=== PATIENT | male | born 1970 | race American Indian/Alaskan Native ===

== ENCOUNTER 2016-10-24 19:56 | Emergency (ER) | payer MEDICARE ==
[2016-10-24 20:36] VITALS: BP 170/103
--- NOTE | 2016-10-24 22:03 | XRay Report ---
FINAL REPORT EXAM: XR FINGER(S) 2+V LT HISTORY: Slammed left index finger in door TECHNIQUE: AP view of the left hand and two views of the left index finger. PRIORS: None. FINDINGS: The osseous mineralization and alignment are normal. The joint spaces are normal. There is no evidence of fracture or dislocation. No radiopaque foreign body is identified. There is soft tissue swelling of the 2nd finger. IMPRESSION: Index finger soft tissue swelling. No evidence of fracture.
== END 2016-10-24 21:00 | disposition left against medical advice (07) ==
LOC: ED 19:56
DX: Z53.21 Procedure and treatment not carried out due to patient leaving prior to being seen by health care provider (principal)

== ENCOUNTER 2017-08-16 12:10 | Emergency (ER) | payer MEDICARE ==
[2017-08-16 12:18] VITALS: BP 142/84
--- NOTE | 2017-08-16 14:24 | Emergency Department Report ---
Upper Extremity - HPI Chief Complaint: Pain General Stated Complaint: RIGHT SHOULDER PAIN Time Seen by Provider: 08/16/17 14:15 Upper Extremity: Right Shoulder Occurred When: >5 Days Mechanism: Hyperflexion (there is) Symptoms: Yes Pain with Movement, No Deformity, No Limited Range of Movement, No Numbness, No Weakness, No Swelling, No Bruising/Ecchymosis, No Laceration or Abrasion ED Review of Systems ROS: Stated complaint: RIGHT SHOULDER PAIN Other details as noted in HPI Constitutional: denies: chills, fever Eyes: denies: eye pain, eye discharge, vision change ENT: denies: ear pain, throat pain Respiratory: denies: cough, shortness of breath, wheezing Cardiovascular: denies: chest pain, palpitations Endocrine: no symptoms reported Gastrointestinal: denies: abdominal pain, nausea, diarrhea Genitourinary: denies: urgency, dysuria Musculoskeletal: myalgia (right lateral shoulder pain radiatind for right deltoid to right forearm ) Skin: denies: rash, lesions Neurological: denies: headache, weakness, paresthesias Psychiatric: denies: anxiety, depression Hematological/Lymphatic: denies: easy bleeding, easy bruising ED Past Medical Hx - Past Medical History Hx Hypertension: Yes Hx Renal Disease: Yes (peritoneal dialysis) - Surgical History Additional Surgical History: umbilical hernia repair, vascular surgery x 4, spleenectomy - Social History Smoking Status: Never Smoker - Medications Home Medications: Home Medications Medication Instructions Recorded Confirmed Last Taken Type Cinacalcet HCl [Sensipar] 60 mg PO DAILY 06/02/13 06/02/13 06/01/13 10:00 History Losartan [Cozaar] 50 mg PO QDAY 06/02/13 06/02/13 06/01/13 10:00 History Metoprolol [Lopressor TAB] 100 mg PO BID 06/02/13 06/02/13 06/01/13 10:00 History Minoxidil [Loniten] 2.5 mg PO QDAY 06/02/13 06/02/13 06/01/13 10:00 History NIFEdipine*For Tocolysis only* 10 mg PO BID 06/02/13 06/02/13 06/01/13 10:00 History [PROCARDIA] Naproxen [Naprosyn] 500 mg PO BID #30 tablet 08/16/13 Unknown Rx traMADol [Ultram 50 MG tab] 50 mg PO Q6HR PRN #20 tablet 08/16/13 Unknown Rx Amoxicillin [Trimox CAP] 500 mg PO Q8H #21 capsule 11/28/13 Unknown Rx HYDROcodone/APAP 5-325 [[place] 1 each PO Q6HR PRN #12 tablet 11/28/13 Unknown Rx 5-325 mg TAB] Ibuprofen [Motrin 800 MG tab] 800 mg PO Q8H #45 tablet 11/28/13 Unknown Rx Erythromycin [Erythromycin Ophth 0 gm OU Q6HR #1 tube 07/22/15 Unknown Rx Oint] Cyclobenzaprine [Flexeril] 10 mg PO BID PRN #20 tablet 08/16/17 Unknown Rx Menthol/Camphor [[place] 1 applicatio TP TID PRN #1 tub 08/16/17 Unknown Rx Ointment] Naproxen 500 mg PO BID #30 tablet 08/16/17 Unknown Rx Upper Extremity Exam - Exam General: Vital signs noted. No distress. Alert and acting appropriately. Head and Torso: No HEENT Abnormality, No Neck Tenderness, No Chest/Lungs Abnormality, No Abdominal Tenderness, No Back Tenderness Shoulder Exam: Yes Shoulder Tenderness, Yes Normal Range of Motion in Shoulder, Yes AC Joint Tenderness (mild ), No Clavicle Tenderness, No Shoulder Deformity Arm Exam: No Arm/Humerus Tenderness, No Arm Deformity Elbow: No Elbow Tenderness, No Normal Range of Motion in Elbow, No Elbow Deformity Forearm: No Forearm Tenderness, No Forearm Deformity, No Pain with Pronation, No Pain with Supination Wrist: No Wrist Tenderness, No Normal ROM in Wrist, No Wrist Deformity, No Snuffbox Tenderness, No Pain with Axial Thumb Compression Hand: Yes Normal ROM in Digit(s), No Hand Tenderness, No Hand Deformity, No Digit Tenderness, No Digit(s) Deformity, No Tendon Dysfunction CMS Exam: Yes Normal Distal Pulses, Yes Normal Capillary Refill, Yes Normal Distal Sensation, No Broken Skin ED Course Vital Signs 08/16/17 12:16 Temperature 98.4 F Pulse Rate 74 Respiratory 16 Rate Blood Pressure 142/84 O2 Sat by Pulse 100 Oximetry ED Medical Decision Making - Medical Decision Making There is no swelling no ecchymosis no edema no deformity 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 ED Disposition Clinical Impression: Right shoulder strain Qualifiers: Encounter type: initial encounter Qualified Code(s): S46.911A - Strain of unspecified muscle, fascia and tendon at shoulder and upper arm level, right arm , initial encounter Disposition: TO HOME OR SELFCARE Is pt being admited?: No Does the pt Need Aspirin: No Condition: Good Instructions: Rotator Cuff Injury (ED), Musculoskeletal Pain (ED) Prescriptions: Cyclobenzaprine [Flexeril] 10 mg PO BID PRN #20 tablet PRN Reason: Muscle Spasm Menthol/Camphor [[place] Ointment] 1 applicatio TP TID PRN #1 tub PRN Reason: Pain , Severe (7-10) Naproxen 500 mg PO BID #30 tablet Referrals: ALESSIO MARTIN MD [Primary Care Provider] - 3-5 Days Forms: Work/School Release Form(ED) Time of Disposition: 14:27
== END 2017-08-16 14:31 | disposition home or self-care (01) ==
LOC: ED 12:10
DX: S46.911A Strain of unspecified muscle, fascia and tendon at shoulder and upper arm level, right arm, initial encounter (principal); I10 Essential (primary) hypertension; Z90.89 Acquired absence of other organs; Z99.2 Dependence on renal dialysis; X58.XXXA Exposure to other specified factors, initial encounter; Y93.89 Activity, other specified; Y99.8 Other external cause status; Y92.89 Other specified places as the place of occurrence of the external cause
CPT/HCPCS: 99282

== ENCOUNTER 2017-09-19 23:10 | Emergency (ER) | payer MEDICARE | END 2017-09-20 00:54 | disposition left against medical advice (07) | LOC: ED 23:10 | DX: R11.2 Nausea with vomiting, unspecified (principal); Z53.21 Procedure and treatment not carried out due to patient leaving prior to being seen by health care provider ==

== ENCOUNTER 2018-08-30 05:02 | Emergency (ER) | payer MEDICARE ==
[2018-08-30] MEDS ORDERED: APRESOLINE IV ONE (05:23)
[2018-08-30 06:00] LABS: Hematocrit 32.2 % (35.5-45.6); Hemoglobin 10.6 gm/dl (11.8-15.2); Mean Corpuscular HGB Conc 33 % (32-34); Mean Corpuscular Volume 86 fl (84-94); Red Blood Count 3.74 M/mm3 (3.65-5.03); Red Cell Distribution Width 19.3 % (13.2-15.2)
[2018-08-30] MEDS ORDERED: ATIVAN IV ONE (06:02)
[2018-08-30 06:04] LABS: Platelet Count 327 K/mm3 (140-440)
[2018-08-30] MEDS ORDERED: ATIVAN ONE (06:05)
[2018-08-30 06:12] LABS: Calcium 8.9 mg/dL (8.4-10.2)
--- NOTE | 2018-08-30 06:34 | Emergency Department Report ---
ED General Adult HPI - General Chief complaint: High BP Stated complaint: HEADACHE POSS HIGH BP Time Seen by Provider: 08/30/18 06:10 Source: patient Mode of arrival: Ambulatory Limitations: No Limitations - History of Present Illness Initial comments: Patient is a 48-year-old male that since emergency room with complaints of elevated blood pressure and headache. Patient states he woke up approximately 5 hours ago with a severe headache. Patient's blood pressure and his blood pressure was slightly high. Patient states he took extra dose of his blood pressure medication at 3 AM and the blood pressure and headache do not decrease. Patient states the pain was an 8 out of 10. Patient states the pain is improving since his blood pressure is coming down. Patient describes the headache as throbbing and sharp. Patient states the headache and pain is nonradiating. Patient states the pain is better with rest and medications. Patient states the pain was worse with exertion. Patient states he missed one of his blood pressure medications for the past 2 days Patient states she does peritoneal dialysis at night. Patient states he was unable to complete his last treatment due to having to come to the hospital. -: Sudden Location: head Radiation: non-radiation Severity scale (0 -10): 0 Quality: stabbing Consistency: now resolved Improves with: medication, rest Worsens with: movement Associated Symptoms: denies: confusion, chest pain, cough, diaphoresis, fever/chills, headaches, loss of appetite, malaise, nausea/vomiting, rash, seizure, shortness of breath, syncope, weakness - Related Data Home Medications Medication Instructions Recorded Confirmed Last Taken Cinacalcet HCl [Sensipar] 60 mg PO DAILY 06/02/13 06/02/13 06/01/13 10:00 Losartan [Cozaar] 50 mg PO QDAY 06/02/13 06/02/13 06/01/13 10:00 Metoprolol [Lopressor TAB] 100 mg PO BID 06/02/13 06/02/13 06/01/13 10:00 Minoxidil [Loniten] 2.5 mg PO QDAY 06/02/13 06/02/13 06/01/13 10:00 NIFEdipine*For Tocolysis only* 10 mg PO BID 06/02/13 06/02/13 06/01/13 10:00 [PROCARDIA] Previous Rx's Medication Instructions Recorded Last Taken Type Naproxen [Naprosyn] 500 mg PO BID #30 tablet 08/16/13 Unknown Rx traMADol [Ultram 50 MG tab] 50 mg PO Q6HR PRN #20 tablet 08/16/13 Unknown Rx Amoxicillin [Trimox CAP] 500 mg PO Q8H #21 capsule 11/28/13 Unknown Rx HYDROcodone/APAP 5-325 [[place] 1 each PO Q6HR PRN #12 tablet 11/28/13 Unknown Rx 5-325 mg TAB] Ibuprofen [Motrin 800 MG tab] 800 mg PO Q8H #45 tablet 11/28/13 Unknown Rx Erythromycin [Erythromycin Ophth 0 gm OU Q6HR #1 tube 07/22/15 Unknown Rx Oint] Cyclobenzaprine [Flexeril] 10 mg PO BID PRN #20 tablet 08/16/17 Unknown Rx Menthol/Camphor [[place] 1 applicatio TP TID PRN #1 tub 08/16/17 Unknown Rx Ointment] Naproxen 500 mg PO BID #30 tablet 08/16/17 Unknown Rx Allergies Allergy/AdvReac Type Severity Reaction Status Date / Time doxercalciferol Allergy Anaphylaxis Verified 07/22/15 12:10 [From Hectorol] ivp dye Allergy Anaphylaxis Uncoded 06/02/13 00:10 ED Review of Systems ROS: Stated complaint: HEADACHE POSS HIGH BP Other details as noted in HPI Constitutional: denies: chills, fever Eyes: denies: eye pain, eye discharge, vision change ENT: denies: ear pain, throat pain Respiratory: denies: cough, shortness of breath, wheezing Cardiovascular: denies: chest pain, palpitations Endocrine: no symptoms reported Gastrointestinal: denies: abdominal pain, nausea, diarrhea Genitourinary: denies: urgency, dysuria Musculoskeletal: denies: back pain, joint swelling, arthralgia Skin: denies: rash, lesions Neurological: headache. denies: weakness, numbness, paresthesias, confusion, abnormal gait, vertigo Psychiatric: denies: anxiety, depression Hematological/Lymphatic: denies: easy bleeding, easy bruising ED Past Medical Hx - Past Medical History Previous Medical History?: Yes Hx Hypertension: Yes Hx Renal Disease: Yes (peritoneal dialysis) - Surgical History Past Surgical History?: Yes Additional Surgical History: umbilical hernia repair, vascular surgery x 4, spleenectomy - Family History Family history: no significant - Social History Smoking Status: Never Smoker Substance Use Type: Marijuana - Medications Home Medications: Home Medications Medication Instructions Recorded Confirmed Last Taken Type Cinacalcet HCl [Sensipar] 60 mg PO DAILY 06/02/13 06/02/13 06/01/13 10:00 History Losartan [Cozaar] 50 mg PO QDAY 06/02/13 06/02/13 06/01/13 10:00 History Metoprolol [Lopressor TAB] 100 mg PO BID 06/02/13 06/02/13 06/01/13 10:00 History Minoxidil [Loniten] 2.5 mg PO QDAY 06/02/13 06/02/13 06/01/13 10:00 History NIFEdipine*For Tocolysis only* 10 mg PO BID 06/02/13 06/02/13 06/01/13 10:00 History [PROCARDIA] Naproxen [Naprosyn] 500 mg PO BID #30 tablet 08/16/13 Unknown Rx traMADol [Ultram 50 MG tab] 50 mg PO Q6HR PRN #20 tablet 08/16/13 Unknown Rx Amoxicillin [Trimox CAP] 500 mg PO Q8H #21 capsule 11/28/13 Unknown Rx HYDROcodone/APAP 5-325 [[place] 1 each PO Q6HR PRN #12 tablet 11/28/13 Unknown Rx 5-325 mg TAB] Ibuprofen [Motrin 800 MG tab] 800 mg PO Q8H #45 tablet 11/28/13 Unknown Rx Erythromycin [Erythromycin Ophth 0 gm OU Q6HR #1 tube 07/22/15 Unknown Rx Oint] Cyclobenzaprine [Flexeril] 10 mg PO BID PRN #20 tablet 08/16/17 Unknown Rx Menthol/Camphor [[place] 1 applicatio TP TID PRN #1 tub 08/16/17 Unknown Rx Ointment] Naproxen 500 mg PO BID #30 tablet 08/16/17 Unknown Rx ED Physical Exam - General Limitations: No Limitations General appearance: alert, in no apparent distress - Head Head exam: Present: atraumatic, normocephalic - Eye Eye exam: Present: normal appearance, PERRL Pupils: Present: normal accommodation - ENT ENT exam: Present: mucous membranes moist - Neck Neck exam: Present: normal inspection, full ROM. Absent: tenderness, meningismus - Respiratory Respiratory exam: Present: normal lung sounds bilaterally. Absent: respiratory distress, wheezes, rales - Cardiovascular Cardiovascular Exam: Present: regular rate, normal rhythm. Absent: systolic murmur, diastolic murmur, rubs, gallop - GI/Abdominal GI/Abdominal exam: Present: soft, normal bowel sounds - Rectal Rectal exam: Present: deferred - Extremities Exam Extremities exam: Present: normal inspection - Back Exam Back exam: Present: normal inspection - Neurological Exam Neurological exam: Present: alert, oriented X3 - Psychiatric Psychiatric exam: Present: normal affect, normal mood - Skin Skin exam: Present: warm, dry, intact, normal color. Absent: rash ED Course Vital Signs 08/30/18 08/30/18 08/30/18 05:03 05:19 05:37 Temperature 97.5 F L 98.1 F Pulse Rate 57 L 55 L 60 Respiratory 18 12 Rate Blood Pressure 225/113 214/111 Blood Pressure 233/117 [Right] O2 Sat by Pulse 100 100 Oximetry 08/30/18 08/30/18 08/30/18 06:00 06:31 07:00 Temperature Pulse Rate 70 76 89 Respiratory 19 11 L 22 Rate Blood Pressure 183/103 157/94 124/84 Blood Pressure [Right] O2 Sat by Pulse 98 100 97 Oximetry 08/30/18 07:31 Temperature Pulse Rate 87 Respiratory 20 Rate Blood Pressure 124/84 Blood Pressure [Right] O2 Sat by Pulse 98 Oximetry - Reevaluation(s) Reevaluation #1: Patient states his pain is still gone. Patient's blood pressures vastly improved. Patient states he felt pretty good. 08/30/18 07:07 Patient is still pain free. Patient's blood pressures dramatically better. Patient instructed to take all his medications as they're prescribed by his card grader and primary care. Discussed all results with patient. Patient is stable for discharge. Patient will be discharged home. Patient agrees to plan of care. Patient given discharge instructions. Patient voiced understanding of discharge instructions. 08/30/18 07:54 ED Medical Decision Making - Lab Data Result diagrams: 08/30/18 05:47 08/30/18 05:47 - Radiology Data Radiology results: report reviewed PROCEDURE: CT HEAD/BRAIN WO CON TECHNIQUE: Computerized tomography of the head was performed without contrast material. CT DOSE LENGTH PRODUCT: 805.4 mGycm HISTORY: SALEH with HTN COMPARISONS: None . FINDINGS: The ventricles, cisterns and sulci are within normal limits. No intra parenchymal or extra-axial mass, hemorrhage, or mass effect. Garcia and white-matter differentiation is within normal limits. Normal spherical shape of the globes. Partially imaged right maxillary sinus disease. Remaining imaged paranasal sinuses and mastoid air cells are without significant abnormality. No skull or facial fracture visualized. IMPRESSION: No acute intracranial abnormality. Kacey imaged right maxillary sinus disease. - Medical Decision Making Patient is a 48-year-old male that presents emergency room with complaints of headache and high blood pressure. Patient's headache resolved as his blood pressure decreased. Patient discharged at a more tolerable level. Patient blood pressure elevated most like secondary to missed medications. Patient instructed to take all his medications. Patient given discharged. Patient's labs consistent with chronic kidney disease. Patient is due for peritoneal dial ysis. Patient informed of all results. - Differential Diagnosis headache. Hypertension. \ Critical Care Time: Yes Critical care attestation.: If time is entered above; I have spent that time in minutes in the direct care of this critically ill patient, excluding procedure time. Critical Care Time: 35 minutes ED Disposition Clinical Impression: ESRD (end stage renal disease) on dialysis, Malignant hypertension Hypertension Qualifiers: Hypertension type: essential hypertension Qualified Code(s): I10 - Essential (primary) hypertension Anemia Qualifiers: Anemia type: unspecified type Qualified Code(s): D64.9 - Anemia, unspecified Headache Qualifiers: Headache type: unspecified Headache chronicity pattern: episodic headache Intractability: not intractable Qualified Code(s): R51 - Headache Disposition: DC TO HOME OR SELFCARE Is pt being admited?: No Does the pt Need Aspirin: No Condition: Stable Instructions: Chronic Kidney Disease (ED), Heart Healthy Diet (ED), How to Take a Blood Pressure (ED), DASH Eating Plan (ED), Low Sodium Diet (ED), Hypertension (ED) Additional Instructions: Patient to follow-up with primary care in 2-3 days. Patient to follow-up with card grader in 2-3 days. Patient to continue peritoneal dialysis at home. Patient to take Tylenol or ibuprofen when necessary for pain. Patient to return to ER if condition worsens. Patient to take meds as directed. Patient to increase water. Patient to rest. Patient to continue all meds. Referrals: HIRAL LUCAS MD [Primary Care Provider] - 2-3 Days Time of Disposition: 07:56
[2018-08-30 06:47] LABS: Total Cells Counted 100
[2018-08-30 06:48] LABS: Platelet Clumps 1+; RBC Morphology Normal
[2018-08-30 07:01] VITALS: BP 124/84
--- NOTE | 2018-08-30 07:39 | Cat Scan Report ---
PROCEDURE: CT HEAD/BRAIN WO CON TECHNIQUE: Computerized tomography of the head was performed without contrast material. CT DOSE LENGTH PRODUCT: 805.4 mGycm HISTORY: SALEH with HTN COMPARISONS: None . FINDINGS: The ventricles, cisterns and sulci are within normal limits. No intra parenchymal or extra-axial mas s, hemorrhage, or mass effect. Garcia and white-matter differentiation is within normal limits. Normal spherical shape of the globes. Partially imaged right maxillary sinus disease. Remaining image d paranasal sinuses and mastoid air cells are without significant abnormality. No skull or facial fr acture visualized. IMPRESSION: No acute intracranial abnormality. Kacey imaged right maxillary sinus disease. This document is electronically signed by Azar Cardenas MD., August 30 2018 07:36:57 AM ET
== END 2018-08-30 08:30 | disposition home or self-care (01) ==
LOC: ED 05:02
DX: I12.0 Hypertensive chronic kidney disease with stage 5 chronic kidney disease or end stage renal disease (principal); N18.6 End stage renal disease; D64.9 Anemia, unspecified; F12.90 Cannabis use, unspecified, uncomplicated; Z99.2 Dependence on renal dialysis; Z98.890 Other specified postprocedural states; Z79.899 Other long term (current) drug therapy; Z88.8 Allergy status to other drugs, medicaments and biological substances; Z91.041 Radiographic dye allergy status
CPT/HCPCS: 36415; 70450; 80048; 85007; 85025; 96374; 96375; 99291; J0360; J2060

== ENCOUNTER 2019-08-27 18:05 | Emergency (ER) | payer OTHER, MEDICARE ==
[2019-08-27 18:23] VITALS: BP 150/82
[2019-08-27] MEDS ORDERED: HYDROcodone/ACETAMINOPHEN 7.5-325MG TAB PO ONE (18:27)
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
--- NOTE | 2019-08-27 19:30 | XRay Report ---
XR shoulder 2+V LT INDICATION / CLINICAL INFORMATION: Left shoulder injury. COMPARISON: None available. FINDINGS: BONES/JOINT(S): There is a nondisplaced fracture of the superior margin of the greater tuberosity, wh ich could represent an avulsion injury at the rotator cuff insertion. No significant degenerative ana nges. SOFT TISSUES: No significant abnormality. ADDITIONAL FINDINGS: None. Signer Name: Moose Maddox MD Signed: 08/27/2019 7:26 PM Workstation Name: [id number]
--- NOTE | 2019-08-27 19:31 | XRay Report ---
RIGHT FINGER(S) 3 VIEW(S) INDICATION / CLINICAL INFORMATION: right thumb injury COMPARISON: None available. FINDINGS: BONES / JOINT(S): No acute fracture or subluxation. 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 SOFT TISSUES: No significant abnormality. Signer Name: Raghu Acosta MD Signed: 08/27/2019 7:26 PM Workstation Name: [id number]
[2019-08-27] MEDS ORDERED: NEOMY 3.5 MG/BACIT 400 UNITS/POLY B 5000 UNITS/GM OINT PACKET TP ONE ×2 (20:00→20:05)
[2019-08-27] MEDS ORDERED: BACITRACIN/POLYMYXIN B OINT 28.35 GM TP ONE (20:02)
== END 2019-08-27 20:18 | disposition home or self-care (01) ==
LOC: ED 18:05
DX: S42.255A Nondisplaced fracture of greater tuberosity of left humerus, initial encounter for closed fracture (principal); S63.601A Unspecified sprain of right thumb, initial encounter; I10 Essential (primary) hypertension; F12.10 Cannabis abuse, uncomplicated; Z98.890 Other specified postprocedural states; Z79.899 Other long term (current) drug therapy; Z88.8 Allergy status to other drugs, medicaments and biological substances; V29.40XA Motorcycle driver injured in collision with unspecified motor vehicles in traffic accident, initial encounter; Y93.89 Activity, other specified; Y92.410 Unspecified street and highway as the place of occurrence of the external cause; Y99.8 Other external cause status
CPT/HCPCS: A6250